=== PATIENT | female | born 1955 | race Caucasian/White ===

== ENCOUNTER 2020-05-27 15:51 | Outpatient (REF) | payer BC, SELFPAY ==
[2020-05-27 18:11] LABS: Free T4 (Free Thyroxine) 1.14 ng/dL (0.71-1.85); Thyroid Stimulating Hormone 0.38 uIU/mL (0.32-4.0)
== END 2020-05-27 15:52 | disposition home or self-care (01) ==
LOC: HO.MANLDS 15:51
PROVIDERS: PCP Internal Medicine; Visit Provider Physician Assistant
DX: E03.9 Hypothyroidism, unspecified (principal)
CPT/HCPCS: 36415; 84439; 84443

== ENCOUNTER 2021-10-12 07:44 | Outpatient (REF) | payer BC, SELFPAY ==
[2021-10-12 11:32] LABS: MANUAL DIFF FLAG NO
[2021-10-12 11:50] LABS: Basophils Absolute Auto 0.1 X10*3/uL (0.0-0.2); Basophils Percent Auto 1.4 % (0-2); Eosinophils Absolute Auto 0.4 X10*3/uL (0.0-0.4); Eosinophils Percent Auto 8.6 % (0-4); Hematocrit 42.5 % (37.0-47.0); Hemoglobin 13.7 g/dl (12.0-16.0); Imm Gran Abs Auto 0.01 X10*3/uL (0.00-0.03); Imm Gran Pct Auto 0.2 % (0.0-0.4); Lymphocytes Absolute Auto 2.1 X10*3/uL (1.2-4.9); Lymphocytes Percent Auto 41.6 % (20-40); Mean Corpuscular HGB Conc 32.2 g/dl (31.0-35.0); Mean Corpuscular Hemoglobin 30.4 pg (27.0-33.0); Mean Corpuscular Volume 94.2 fL (80.0-98.0); Mean Platelet Volume 10.5 fL (9.4-12.3); Monocytes Absolute Auto 0.5 X10*3/uL (0.1-1.2); Monocytes Percent Auto 9.2 % (2-11); Platelet Count 287 X10*3/uL (160-400); Red Blood Count 4.51 X10*6/uL (4.20-5.50); Red Cell Distribution Width 13.1 % (11.0-16.0)
[2021-10-12 12:12] LABS: Alanine Aminotransferase 15 U/L (0-31); Albumin Level 4.2 g/dL (3.5-5.0); Alkaline Phosphatase 74 U/L (39-117); Anion Gap 11 (12-20); Aspartate Amino Transferase 17 U/L (5-31); Bilirubin Total 0.5 mg/dL (0.0-1.0); Blood Urea Nitrogen 14 mg/dL (9-16); Calcium 8.9 mg/dL (8.4-10.2); Carbon Dioxide 26 mmol/L (22-29); Chloride 108 mmol/L (96-108); Cholesterol 182 mg/dL; Estimated Glomerular Filt Rate > 60; Glucose Random 104 mg/dL (60-115); HDL Cholesterol 54 mg/dL; LDL Cholesterol Calculated 113 mg/dl; Potassium 4.1 mmol/L (3.3-5.1); Sodium 141 mmol/L (135-145); Total Protein 6.8 g/dL (6.5-8.0); Triglycerides 76 mg/dL
== END 2021-10-12 07:45 | disposition home or self-care (01) ==
LOC: HO.HMGCLDS 07:44
PROVIDERS: PCP Internal Medicine; Visit Provider Physician Assistant
DX: E03.8 Other specified hypothyroidism (principal); I10 Essential (primary) hypertension
CPT/HCPCS: 36415; 80053; 80061; 84443; 85025

== ENCOUNTER 2022-11-08 07:30 | Outpatient (REF) | payer MEDICARE, SELFPAY ==
[2022-11-08 11:28] LABS: MANUAL DIFF FLAG NO
[2022-11-08 11:32] LABS: Basophils Absolute Auto 0.1 X10*3/uL (0.0-0.2); Basophils Percent Auto 1.2 % (0-2); Eosinophils Absolute Auto 0.3 X10*3/uL (0.0-0.4); Eosinophils Percent Auto 6.2 % (0-4); Hematocrit 42.6 % (37.0-47.0); Hemoglobin 13.9 g/dl (12.0-16.0); Lymphocytes Absolute Auto 2.3 X10*3/uL (1.2-4.9); Lymphocytes Percent Auto 47.8 % (20-40); Mean Corpuscular HGB Conc 32.6 g/dl (31.0-35.0); Mean Corpuscular Hemoglobin 30.7 pg (27.0-33.0); Mean Platelet Volume 10.3 fL (9.4-12.3); Monocytes Absolute Auto 0.4 X10*3/uL (0.1-1.2); Monocytes Percent Auto 8.2 % (2-11); Neutrophils Absolute Auto 1.8 x10*3/uL (2.0-8.3); Neutrophils Percent Auto 36.6 % (45-73); Platelet Count 279 X10*3/uL (160-400); Red Blood Count 4.53 X10*6/uL (4.20-5.50); Red Cell Distribution Width 12.7 % (11.0-16.0); White Blood Count 4.9 X10*3/uL (4.8-10.8)
[2022-11-08 12:18] LABS: Alanine Aminotransferase 16 U/L (0-31); Albumin Level 3.9 g/dL (3.5-5.0); Alkaline Phosphatase 70 U/L (39-117); Anion Gap 15 (12-20); Aspartate Amino Transferase 19 U/L (5-31); Bilirubin Total 0.5 mg/dL (0.0-1.0); Blood Urea Nitrogen 18 mg/dL (9-16); Calcium 9.4 mg/dL (8.4-10.2); Carbon Dioxide 22 mmol/L (22-29); Chloride 109 mmol/L (96-108); Cholesterol 198 mg/dL; Estimated Glomerular Filt Rate > 60; Glucose Random 100 mg/dL (60-115); HDL Cholesterol 51 mg/dL; LDL Cholesterol Calculated 131 mg/dl; Potassium 3.9 mmol/L (3.3-5.1); Sodium 142 mmol/L (135-145); Triglycerides 84 mg/dL
[2022-11-08 12:39] LABS: Free T4 (Free Thyroxine) 0.87 ng/dL (0.71-1.85); Thyroid Stimulating Hormone 1.33 uIU/mL (0.32-4.0)
== END 2022-11-08 07:31 | disposition home or self-care (01) ==
LOC: HO.HMGCLDS 07:30
PROVIDERS: PCP Internal Medicine; Visit Provider Physician Assistant
DX: I10 Essential (primary) hypertension (principal); E03.8 Other specified hypothyroidism
CPT/HCPCS: 36415; 80053; 80061; 84439; 84443; 85025

== ENCOUNTER 2022-11-25 09:54 | Outpatient (REF) | payer MEDICARE, SELFPAY ==
[2022-11-25 14:08] LABS: Cortisol Random 12.7 ug/dL
[2022-11-25 14:14] LABS: Erythrocyte Sedimentation Rate 3 MM/HR (0-20)
[2022-11-28 10:59] LABS: Follicle Stimulating Hormone 137.7 mIU/mL; Lutenizing Hormone 42.3 mIU/mL
[2022-11-28 17:38] LABS: Thyroglobulin 10.1 ng/mL; Thyroid Peroxidase Antibodies <1 IU/mL (<9)
[2022-12-01 13:28] LABS: Testosterone, Free 2.9 pg/mL (0.1-6.4); Testosterone, Total 19 ng/dL (2-45)
[2022-12-01 15:14] LABS: Progesterone <0.1 ng/mL
[2022-12-02 17:37] LABS: Estrogen 61 pg/mL
== END 2022-11-25 09:55 | disposition home or self-care (01) ==
LOC: HO.MANLDS 09:54
PROVIDERS: Visit Provider Physician Assistant
DX: R61 Generalized hyperhidrosis (principal)
CPT/HCPCS: 36415; 82533; 82672; 83001; 83002; 84144; 84402; 84403; 84432; 85652; 86140; 86376

== ENCOUNTER 2023-02-03 13:22 | Outpatient (REF) | payer MEDICARE, SELFPAY ==
--- NOTE | ~2023-02-03 | MM_ITS ---
EXAMINATION: MM SCREENING DIGITAL BREAST TOMOSYNTHESIS, BILATERAL CLINICAL INFORMATION: Screening. Asymptomatic. COMPARISON: Mammography: This study is compared with prior exams dating back to 2007. TECHNIQUE: Digital breast tomosynthesis is performed in both the craniocaudal and mediolateral oblique views along with computer-aided detection (CAD). Synthesized 2D images are generated from the tomosynthesis. FINDINGS: There are scattered areas of fibroglandular density (ACR BI-RADS breast composition Category b). There is a focal asymmetry of the lower inner quadrant of the left breast at an anterior depth. Additional mammographic imaging of this region is advised. Targeted sonography is at the discretion of the diagnostic radiologist. In the right breast, there are no significant masses, abnormal calcifications, or other abnormalities. MM/MM tomosynthesis screening BI IMPRESSION: Focal asymmetry of the left breast warrants additional mammographic imaging. Targeted sonography is at the discretion of the diagnostic radiologist. No mammographic signs of malignancy right breast. ASSESSMENT: BI-RADS BI-RADS 0 - Incomplete: Needs additional Imaging. RECOMMENDATION: 1. Additional views of the left breast 2. Targeted ultrasound if warranted after review of the additional views. 3. Radiology department staff will contact the patient for additional imaging. Additional Imaging required This examination should not preclude the clinical evaluation of a suspicious palpable abnormality. This patient's information was entered into a reminder system with a target due date for their next mammogram.
== END 2023-02-03 13:23 | disposition home or self-care (01) ==
LOC: HO.MAMMO 13:22
PROVIDERS: PCP Internal Medicine; Visit Provider Internal Medicine
DX: Z12.31 Encounter for screening mammogram for malignant neoplasm of breast (principal)
CPT/HCPCS: 77063; 77067

== ENCOUNTER → 2023-02-03 13:45 | Outpatient (BNV) | payer MEDICARE, SELFPAY | PROVIDERS: PCP Internal Medicine; Visit Provider Radiology Diagnostic Radiology | DX: Z12.31 Encounter for screening mammogram for malignant neoplasm of breast (principal) | CPT/HCPCS: 77063; 77067 ==

== ENCOUNTER 2023-03-07 08:51 | Outpatient (REF) | payer MEDICARE, SELFPAY ==
--- NOTE | ~2023-03-07 | US_ITS ---
EXAMINATION: MM DIAGNOSTIC DIGITAL BREAST TOMOSYNTHESIS, LEFT US BREAST LIMITED, LEFT MAMMOGRAPHY: CLINICAL INFORMATION: Follow-up focal asymmetry lower inner quadrant left breast, anterior depth, seen on screening exam. COMPARISON: Mammography: 02/03/2023, and dating back to 04/14/2014. TECHNIQUE: Digital breast tomosynthesis is performed in the following views: 3-D left spot compression CC and MLO views, as well as a full-field left ML 3-D view. FINDINGS: The breasts are heterogeneously dense, which may obscure small masses (ACR BI-RADS breast composition Category c). There is a lobulated mass in the anterior, lower inner quadrant of the left breast, measuring 1.9 x 0.8 cm. In retrospect, this has been present since 2014 and has undergone very little change, where it measured slightly less, approximately 1.2 x 0.6 cm. This will be interrogated by ultrasound. No additional suspicious findings in the right breast. ULTRASOUND: CLINICAL INFORMATION: Lobulated mass in the anterior, lower inner quadrant of the left breast. COMPARISON: None TECHNIQUE: Targeted sonographic evaluation was performed using a high frequency linear transducer. Attention was performed left breast inferior axis. Selected archived documentation. FINDINGS: LEFT BREAST: There is a mixture of fatty and fibroglandular tissue. No suspicious mass is seen. There is no pathologic acoustic shadowing. There is a simple cyst in the 7:00 axis, 3 cm from the nipple, measuring 1.0 x 1.0 x 0.7 cm. This correlates the mammographic focus of concern. This is benign. US/US breast LT limited mamm only IMPRESSION: There are no findings suspicious for malignancy in the right breast. Simple cyst 7:00 axis. This is benign. Recommend the patient return to routine bilateral screening. OVERALL ASSESSMENT: Mammography: BI-RADS 2 - Benign Findings Ultrasound: BI-RADS 2 - Benign Findings RECOMMENDATION: 1 year F/U Results were provided to the patient at time of visit by the technologist. This patient's information was entered into a reminder system with a target due date for their next mammogram.
== END 2023-03-07 08:52 | disposition home or self-care (01) ==
LOC: HO.MAMMO 08:51
PROVIDERS: PCP Internal Medicine; Visit Provider Internal Medicine
DX: R92.2 Inconclusive mammogram (principal)
CPT/HCPCS: 76642; 77061; 77065

== ENCOUNTER → 2023-03-07 09:00 | Outpatient (BNV) | payer MEDICARE, SELFPAY | PROVIDERS: PCP Internal Medicine; Visit Provider Radiology Diagnostic Radiology | DX: N60.02 Solitary cyst of left breast (principal) | CPT/HCPCS: 76642; 77061; 77065; G0279 ==

== ENCOUNTER 2024-02-09 13:08 | Outpatient (REF) | payer MEDICARE, SELFPAY ==
--- NOTE | ~2024-02-09 | MM_ITS ---
EXAMINATION: MM SCREENING DIGITAL BREAST TOMOSYNTHESIS, BILATERAL CLINICAL INFORMATION: Screening. Asymptomatic. COMPARISON: Mammography: Comparison is made with available priors TECHNIQUE: Digital breast mammography with tomosynthesis is performed in both the craniocaudal and mediolateral oblique views along with computer-aided detection (CAD). FINDINGS: The breasts are heterogeneously dense, which may obscure small masses (ACR BI-RADS breast composition Category c). There are no significant masses, abnormal calcifications, or other abnormalities. MM/MM tomosynthesis screening BI IMPRESSION: No mammographic evidence of malignancy. ASSESSMENT: BI-RADS BI-RADS 1 - Negative RECOMMENDATION: Routine annual mammography screening. 1 year F/U This examination should not preclude the clinical evaluation of a suspicious palpable abnormality. This patient's information was entered into a reminder system with a target due date for their next mammogram. Electronically signed by: Misti Covington DO 02/19/2024 07:40 PM [facility]
== END 2024-02-09 13:09 | disposition home or self-care (01) ==
LOC: HO.MAMMO 13:08
PROVIDERS: PCP Internal Medicine; Referring Provider Internal Medicine; Visit Provider Internal Medicine
DX: Z12.31 Encounter for screening mammogram for malignant neoplasm of breast (principal)
CPT/HCPCS: 77063; 77067

== ENCOUNTER → 2024-02-09 13:30 | Outpatient (BNV) | payer MEDICARE, SELFPAY | PROVIDERS: PCP Internal Medicine; Visit Provider Internal Medicine | DX: Z12.31 Encounter for screening mammogram for malignant neoplasm of breast (principal) | CPT/HCPCS: 77063; 77067 ==

== ENCOUNTER 2024-05-14 07:35 | Outpatient (REF) | payer MEDICARE, SELFPAY ==
--- OUTSIDE RECORDS SUMMARY | 2024-05-14 07:43 | XMS_ITS | Data Portability ---
Author Organization [facility], Home Service Address [address] [place] [address] Assessment Encounter Date Assessment Date Assessment LastModified by Organization Details LastModified Time 05/25/2022 05/25/2022 The patient denies recent falls or recurrent falls. Denies instability, weakness, abnormal gait, or difficulties with movement. The patient wears correct, supportive shoes and is not otherwise severely visually impaired. The patient is full weight bearing and if using the assistance of a cane or walker feels supported and stable with the use of such devices. All medical conditions have been taken into account that may pose a risk for the patient for falls. Home kaylyn, carpets and/or rugs do not pose a challenge for the patient. The patient has been educated about the use of vitamin D supplementation for bone health and prevention of hypotensive episodes that may increase risk for fall. All question and concerns were answered to the patient's satisfaction. [email or web address] Not available 05/25/2022 09:08:08 11/25/2022 11/25/2022 The patient denies recent falls or recurrent falls. Denies instability, weakness, abnormal gait, or difficulties with movement. The patient wears correct, supportive shoes and is not otherwise severely visually impaired. The patient is full weight bearing and if using the assistance of a cane or walker feels supported and stable with the use of such devices. All medical conditions have been taken into account that may pose a risk for the patient for falls. Home kaylyn, carpets and/or rugs do not pose a challenge for the patient. The patient has been educated about the use of vitamin D supplementation for bone health and prevention of hypotensive episodes that may increase risk for fall. All question and concerns were answered to the patient's satisfaction. [email or web address] Not available 11/25/2022 09:50:02 Plan of Treatment Reminders Order Date Submit Date Provider Last Modified By Organization Details Last Modified Time Details Appointments FOLLOW UP 15 2024 09:00A SANNA LOPEZ Not available Not available Not available Lab lipid panel, blood 2022 023 [facility], [address] [place] [address], [id number], 05/25/2022 09:20:31 TSH + free T4, serum 2022 023 [facility], [address] [place] [address], [address], 05/25/2022 09:20:31 CMP, serum or plasma 2022 023 [facility], [address] [place] [address], [address], 11/09/2022 12:06:31 CBC w/ auto diff 2022 023 [facility], [address] [place] [address], [place], [address], 05/25/2022 09:20:31 lh + FSH, serum 2022 023 [facility], [address] [place] [address], [place], [address], 11/28/2022 11:38:43 C-reactiv e protein, quantitat otis, serum or plasma 2022 023 [facility], [address] [place] [address], [place], [address], 11/28/2022 11:38:43 erythrocy te sedimenta tion rate by westergre n method 2022 023 [facility], [address] [place] [address], [id number], 11/28/2022 11:38:44 testoster one, free + total, serum 2022 023 [facility], [address] [place] [address], [address], 12/02/2022 12:22:09 progester one, serum 2022 023 [facility], [address] [place] [address], [address], 12/02/2022 12:22:09 estrogen, total, serum 2022 023 [facility], [address] [place] [address], [address], 12/05/2022 11:46:25 thyroglob ulin, quantitat otis, serum 2022 023 [facility], [address] [place] [address], [address], 11/29/2022 12:45:55 thyroid peroxidas e (tpo) Ab, serum 2022 023 [facility], [address] [place] [address], [address], 11/29/2022 12:45:55 cortisol, serum or plasma 2022 023 [facility], [address] [place] [address], [address], 11/25/2022 09:48:09 CMP, serum or plasma 2023 024 [facility], [address] [place] [address], [address], 11/22/2023 09:46:03 CBC w/ auto diff 2023 024 [facility], [address] [place] [address], [address], 11/22/2023 09:46:03 TSH + free T4, serum 2023 [facility], [address] [facility], [place], [address], 11/22/2023 09:46:03 Referral None recorded. Procedures None recorded. Surgeries None recorded. Imaging None recorded. Medication Orders losartan 50 mg tablet 2023 [facility], [address] [place] [address], [address], 05/26/2023 09:40:42 levothyro xine 75 mcg tablet 2023 [facility], [address] [place] [address], [address], 05/26/2023 09:40:42 Patient TargetsNo targets recorded. Patient InstructionsNo instructions recorded. Reason for Referral None Reported. Results Created Date Observation Date Name Description Value Unit Range Abnormal Flag Note LastModifiedBy Organization Detail LastModifiedTime 02/23/20 23 02/03/2023 MAMMO , scree irineo, digit al, bilat eral No observ ation record ed. [address] [place], [address], 05/26/2023 09:43:08 03/07/20 23 03/07/2023 MAMMO , scree irineo, digit al, bilat eral No observ ation record ed. [address] [place], [address], 05/26/2023 09:43:08 03/07/20 23 03/07/2023 MAMMO , scree irineo, digit al, bilat eral No observ ation record ed. [address] [place], [address], 05/26/2023 09:43:08 02/19/20 24 2024 MAMMO , scree irineo, digit al, bilat eral No observ ation record ed. [facility] [address] [place], [address], 02/20/2024 08:51:41 Result Notes None recorded. Problems Name Problem SNOMED Code Status Onset Date Resolution Date Notes Provider Name and Address Organization Details Recorded Time History of tear of retina 099390415 Active 2018 left Vicky Bowden NP, S [address] [place] [address], [phone], [facility] [place], [facility] 9 15:22:49 Lingular pneumonia 678869154 Active 2022 SANNA MORIN [address] [place] [address], [phone], [facility] 3 09:43:55 Hot sweats 814491810 Active 2022 SANNA MORIN [address] [place] [address], [address], [facility] [place] 3 09:44:02 Menopausal syndrome 934581801 Active 2022 SANNA MORIN [address] [place] [address], [address], [facility] 3 12:06:03 Menopause Active 2022 SANNA MORIN [address] [place] [address], [address], [facility] [place] 3 14:39:53 Menopausal flushing 905068768 Active 2022 SANNA MORIN [address] [place] [address], [address], [facility] [place] 3 14:40:20 Pneumonia 189979960 Active 2023 SANNA MORIN [address] [place] [address], [address], [facility] [place] 4 09:40:55 Essential hypertensi on 56566476 Active 2017 Tootie greenfield [facility] 8 16:53:01 Hypothyroi dism 62248241 Active 2017 Tootie greenfield [facility] 8 16:54:42 Diverticul itis 452088869 Active 2017 Tootie greenfield [facility] 8 16:54:52 Problem Notes None recorded. Procedures Surgical History Date Name Laterality Status Provider Name and Address Organization Details Recorded Time repair of retina for retinal detachment completed Vicky Bowden NP, [address] [place], [address], [facility] [place] 05/23/2018 15:23:14 Imaging Results Imaging Date Name Status LastModified by Organiz ation Details LastModified Time 02/03/2023 MAMMO, screening, digital, bilateral [facility] [address] [place], [address], 05/26/2023 09:43:08 03/07/2023 MAMMO, screening, digital, bilateral completed [address] [place], [address], 05/26/2023 09:43:08 03/07/2023 MAMMO, screening, digital, bilateral [facility] [address] [place], [address], 05/26/2023 09:43:08 2024 MAMMO, screening, digital, bilateral completed [email or web address] [address] [place], [address], 02/20/2024 08:51:41 Procedure Notes None recorded. Medical Equipment None Reported. Allergies Allergen ID Allergen Name Allergen Category Reaction Reaction Severity Criticality Documentation Date Start Date Code Code System Note Provider Name and Address Organization Details Recorded Time 1404 Substance with sulfonami de structure and antibacte rial mechanism of action (substanc e) medicatio n Not available Not available Not available 08/25/2017 18783 8007 SNOMED [facility] 8 16:51:41 1405 Percodan medicatio n Not available Not available Not available 08/25/2017 82129 [facility]Norm [facility] 8 16:52:00 Medications Name Sig Start Date Stop Date Status Note LastModified by Organization Details LastModified Time losartan 50 mg tablet TAKE 1 TABLET DAILY 2024 active Not Available Not Available Not Avai lable methocarbam ol 500 mg tablet 04/23 completed Not Available Not Available Not Available prednisone 10 mg tablet 10/19 completed Not Available Not Available Not Available enalapril maleate 5 mg tablet TAKE 1 TABLET DAILY 11/25 completed Not Available Not Available Not Available azithromyci n 250 mg tablet TAKE 2 TABLETS (500 MG) BY ORAL ROUTE ONCE DAILY FOR 1 DAY THEN 1 TABLET (250 MG) BY ORAL ROUTE ONCE DAILY FOR 4 DAYS 05/23 completed Not Available Not Available Not Available prednisone 20 mg tablet 05/28 completed Not Available Not Available Not Available medroxyprog esterone 5 mg tablet Take 1 tablet every day by oral route for 21 days. 05/26 completed Not Available Not Available Not Available methylpredn isolone 4 mg tablet 10/19 completed Not Available Not Available Not Available levothyroxi ne 75 mcg tablet TAKE 1 TABLET DAILY 2024 active Not Available Not Available Not Avai lable estradiol 1 mg tablet Take 1 tablet every day by oral route for 21 days. 05/26 completed Not Available Not Available Not Available ciprofloxac in 0.3 % eye drops INSTILL 1 DROP INTO AFFECTED EYE(S) BY OPHTHALMI C ROUTE EVERY 2 HOURSWHIL E AWAKE FOR 2 DAYS THEN 1 DROP EVERY 4 HRS WHILE AWAKE FOR 5 DAYS 10/19 completed Not Available Not Available Not Available doxycycline monohydrate 100 mg capsule Take 1 capsule twice a day by oral route. 05/23 completed Not Available Not Available Not Available losartan 25 mg tablet TAKE 1 TABLET DAILY 12/01 completed Not Available Not Available Not Available progesteron e micronized 200 mg capsule TAKE 1 CAPSULE EVERY DAY BY ORAL ROUTE FOR 12 DAYS. 05/26 completed Not Available Not Available Not Available gabapentin 100 mg capsule 10/19 completed Not Available Not Available Not Available estradiol 0.5 mg tablet Take 1 tablet every day by oral route for 21 days. 05/26 completed Not Available Not Available Not Available naproxen 500 mg tablet 05/23 completed Not Available Not Available Not Available Pneumovax-2 3 25 mcg/0.5 mL injection syringe 12/01 completed Not Available Not Available Not Available ProAir HFA 90 mcg/actuati on aerosol inhaler Inhale 2 puffs every 6 hours by inhalatio n route. 08/22 completed Not Available Not Available Not Available Virtussin AC 10 mg-100 mg/5 mL oral liquid Take 10 mL every 4 hours by oral route. 05/23 completed Not Available Not Available Not Available Fluarix Quad 9005-2016 (PF) 60 mcg (15 mcg x 4)/0.5 mL IM syringe 08/28 completed Not Available Not Available Not Available Flucelvax Quad (PF) 60 mcg (15 mcg x 4)/0.5 mL IM syringe 04/23 completed Not Available Not Available Not Available Fluarix Quad (PF) 60 mcg (15 mcg x 4)/0.5 mL IM syringe 07/08 completed Not Available Not Available Not Available Vitals Date Recorded Body height Body mass index (BMI) Body weight Oxygen saturation Oxygen saturation in Arterial blood by Pulse oximetry Heart rate Systolic blood pressure Diastolic blood pressure Provider Name and Address Organization Details Last Updated DateTime 2 160.66 cm 26.7 kg/m2 41456.4 g 96 % 96 % 100 /min 130 mm[Hg] 70 mm[Hg] [facility] 2 09:17:41 Date Recorded Body height Body mass index (BMI) Body weight Oxygen saturation Oxygen saturation in Arterial blood by Pulse oximetry Heart rate Systolic blood pressure Diastolic blood pressure Provider Name and Address Organization Details Last Updated DateTime 3 160.66 cm 26.9 kg/m2 27154.3 5 g 96 % 96 % 98 /min 124 mm[Hg] 78 mm[Hg] [facility] 3 09:03:04 Date Recorded Body height Body mass index (BMI) Body weight Heart rate Oxygen saturation Oxygen saturation in Arterial blood by Pulse oximetry Systolic blood pressure Diastolic blood pressure Provider Name and Address Organization Details Last Updated DateTime 3 160.66 cm 26.9 kg/m2 41317.7 1 g 80 /min 94 % 94 % 124 mm[Hg] 72 mm[Hg] SANNA MORIN [address] [place], [address] [place] [address] [facility] 3 09:38:19 Date Recorded Body height Body mass index (BMI) Body weight Oxygen saturation Oxygen saturation in Arterial blood by Pulse oximetry Heart rate Systolic blood pressure Diastolic blood pressure Provider Name and Address Organization Details Last Updated DateTime 4 160.66 cm 26.9 kg/m2 46107.6 3 g 97 % 97 % 107 /min 132 mm[Hg] 74 mm[Hg] Maria R Garcia [facility] 4 09:27:07 Date Recorded Body height Body mass index (BMI) Body weight Heart rate Oxygen saturation Oxygen saturation in Arterial blood by Pulse oximetry Systolic blood pressure Diastolic blood pressure Provider Name and Address Organization Details Last Updated DateTime 4 160.66 cm 27.3 kg/m2 67492.9 g 96 /min 96 % 96 % 130 mm[Hg] 82 mm[Hg] Renee Juan Alberto [facility] 4 09:29:29 Social History Question Answer Notes LastModified by Organizat ion Details LastModified Time Tobacco Smoking Status [facility] 08/28/2017 14:48:11 What Was The Date Of Your Most Recent Tobacco Screening? 11/22/2023 [email or web address] Information not available 11/22/2023 Do You Or Have You Ever Used Any Other Forms Of Tobacco Or Nicotine? No [email or web address] Information not available 05/26/2023 Sex: Unknown Functional Status None recorded. Mental Status None recorded. Family History Nothing Reported. Medical History No medical history recorded. Gynecological HistoryNo gynecological history recorded. Obstetrics History GPAL:G 0 P 0 0 0 0 Immunizations Vaccine Type Date Status Note Provider Nam e and Address Organization Details Recorded Time COVID-19, mRNA, LNP-S, PF, 30 mcg/0.3 mL dose 07/24/19 21 completed Ananya greenfield [facility] 12/01/2020 09:03:14 COVID-19, mRNA, LNP-S, PF, 30 mcg/0.3 mL dose 08/14/19 21 completed Ananya greenfield [facility] 12/01/2020 09:03:19 pneumococcal polysaccharide PPV23 02/11/20 19 completed Ananya greenfield [facility] 12/01/2020 09:17:06 Influenza, split virus, quadrivalent, preservative 01/15/20 18 completed Suman Escalera DO [address] [place] [address], [address], [facility] 01/15/2018 14:23:11 COVID-19, mRNA, LNP-S, PF, 30 mcg/0.3 mL dose 02/27/20 21 completed Emma greenfield [facility] 05/25/2022 07:58:16 COVID-19, mRNA, LNP-S, PF, 30 mcg/0.3 mL dose 01/15/20 22 completed Emma greenfield [facility] 05/25/2022 07:58:24 influenza, unspecified formulation 02/07/20 22 [facility] 07:58:41 Influenza, split virus, quadrivalent, preservative 01/27/20 19 completed VIOLETTE Christina [address] [place] [address], [address], [facility] 05/28/2019 09:12:33 Past Encounters Encounter ID Performer Location Encounter Start Date Encounter Closed Date Diagnosis/Indication Diagnosis SNOMED-CT Code Diagnosis ICD10 Code Diagnosis Note [id number] Vicky Bowden NP, S [address],[place] [address] 08/28/2017 14:40:00 08/28/2017 16:33:57 Hypothyroidism 31273319 E03.9 Essential hypertension 16498582 I10 Diverticul osis of colon without diverticulitis 638842780 K57.30 up [place] with [place]oscop y [id number] Vicky Bowden NP, [facility] [address] [facility],[place] [address] 04/23/2018 11:00:28 04/23/2018 11:28:57 Cough 17196941 R05 Pneumonia 104909775 J18. 9 Hypothyroidism 17200251 E03.9 stable Essential hypertension 63674196 I10 well controlled [id number] Vicky Bowden NP, [facility] [address] [facility], [place] [address] 05/07/2018 13:48:33 05/07/2018 15:21:53 Lingular pneumonia 663797102 J18.1 rest and stay hydrated [id number] Vicky Bowden NP, [facility] [address], [facility] [place] [address] 05/23/2018 15:10:49 05/23/2018 16:33:27 Adult health examination 596893841 Z00.00 Screening procedure 2012 5006 Z13.9 Fine respi ratory crackles 90899311 R09.89 Hypothyroidism 96524394 E03.9 stable Essential hypertension 40851471 I10 well controlled Sciatica 83423952 M54.32 continue stretches, avoid high kicks in kickboxing class [id number] Vicky Bowden NP, [facility] [address] [facility], [facility] [place] [address] 06/13/2018 13:16:24 06/13/2018 15:09:43 Pneumonia 499138448 J18.9 test of cure Chronic cough 20672637 R 05 Tachycardia 2841611 R00. 0 improved , but persistent Vicky Bowden NP, [facility] [address], [place] [address] 08/22/2018 10:16:51 08/22/2018 12:09:58 Acute conjunctivitis 48700546 H10.32 Hypothyroidism 72125906 E03.9 stable Essential hypertension 70908952 I10 well controlled Sciatica 56673958 M54.32 pt defers physical therapy +/or MRI [id number] [facility] [address] [facility] [address],[place] [address] 10/19/2018 09:31:16 10/19/2018 12:23:32 Acute sciatica 243188752 M54.32 improving had xr at and it was normal would like to just monitor improvemen t Essential hypertension 29818037 I10 stable Hypothyroidism 86975397 E03.9 stable Screening procedure 2012 5006 Z13.9 Vitamin D deficiency 347 51748 E55.9 [id number] [facility] [address] [facility] [address],[place] [address] 05/28/2019 08:51:55 05/28/2019 09:59:29 Acute sciatica 922098970 M54.32 improving had xr at and it was normal would like to just monitor improvemen t Essential hypertension 71573822 I10 stable Hypothyroidism 77498143 E03.9 stable Screening for malignant neoplasm of breast 664633919 Z12.31 Body mass index 25-29 - overweight 103162337 Z68.27 [id number] SANNA MORIN [facility] [address] [facility],[place] [address] 11/26/2019 08:50:51 11/26/2019 09:55:10 Adult health examination 678523432 Z00.00 no concerns today Essential hypertension 74831849 I10 will switch medication because she has developed a dry cough will have her fu to see how she is doing on her medication [id number] SANNA MORIN [facility] [address] [facility] [address],[place] [address] 05/27/2020 15:25:26 05/27/2020 15:50:45 Hypothyroidism 05275238 E03.9 follow up with TSH check to see if there needs to be adjustment Essential hypertension 65050884 I10 will increase dose to 50 mg, will have her take two of the 25 mg and fu with increased script when she is out Diverticulitis 514256749 K57.92 recent flare that resolved on its own, doing well otherwise [id number] SANNA MORIN [facility] [address],[place] [address] 12/01/2020 08:55:01 12/01/2020 09:18:53 Hypothyroidism 65216091 E03.9 recent check was normal Essential hypertension 42941778 I10 BP stableexce llent control with losartan Lingular pneumonia 33544 6003 J18.1 resolved [id number] SANNA MORIN [facility] [address],[place] [address] 05/25/2021 09:03:16 05/25/2021 09:26:25 Hypothyroidism 49970706 E03.8 recent check was normal Essential hypertension 21716368 I10 BP stableexce llent control with losartan Lingular pneumonia 74060 6003 J18.1 resolved [id number] SANNA MORIN [facility] [address],[place] [address] 11/24/2021 09:09:01 11/24/2021 10:35:09 Hypothyroidism 59249917 E03.8 stable with BW Essential hypertension 28795200 I10 BP stableexce llent control with losartan [id number] SANNA MORIN [facility] [address],[place] [address] 05/25/2022 08:57:26 05/25/2022 09:27:35 Essential hypertension 30485960 I10 BP stableexce llent control with losartan Hypothyroidism 96880978 E03.8 stable with BW [id number] SANNA MORIN [facility] [address],[place] [address] 11/25/2022 09:34:40 11/25/2022 11:13:52 Essential hypertension 68474620 I10 BP stableexce llent control with losartan Hypothyroidism 78111865 E03.8 stable with BW Lingular pneumonia 33720 6003 J18.1 resolved Hot sweats 313339031 R61 will set up with additional lab work for new onset lab work [id number] SANNA MORIN [facility] [address],[place] [address] 05/26/2023 09:21:38 05/26/2023 14:15:59 Menopausal flushing 804515579 N95.1 stable will monitor Hypothyroidism 86867150 E03.8 stable with BW Essential hypertension 90647570 I10 BP stableexce llent control with losartan Pneumonia 085752031 J18. 1 resolved [id number] SAN[facility] MOR[facility] [address] [facility],[place] [address] 11/22/2023 09:22:42 11/22/2023 10:50:35 Depression screening 368297946 Z13.31 SCREENING NEGATIVE Active or passive immunization 524354886 Z23 up for shingles and pnagets flu shot every year Essential hypertension 30897228 I10 BP stableexce llent control with losartan Hypothyroidism 68260580 E03.8 stable with BW Health Concerns Section Related Observation LastModified by Organization Detai ls LastModified Time None Recorded Concern Status LastModified by Organization Details LastModified Time None Recorded Advance Directives Directive None Recorded Payers Encounter Date Sequence Insurance Name Policy Number Policy Arellano Covered Member ID Arellano Member ID Guarantor Name 11/24/2021 1 [facility] [place] [id number] Venita A Ankita [id number] Venita Ankita 05/25/2022 1 [facility] [place] [id number] Venita A Ankita [id number] Venita Ankita 05/25/2022 1 [place] [employer] Venita A Ankita [id number] Venita Ankita 11/25/2022 1 [place] [employer] Venita A Ankita [id number] Venita Ankita 05/26/2023 1 [place] [employer] Venita A Ankita [id number] Venita Ankita 11/22/2023 1 [place] [employer] Venita A Ankita [id number] 4 Venita Ankita Notes Date Note Type Note Provider Name a nd Address Organization Details Recorded Time 2 text/html 6 mos f/u HTN: today in the office the patient BP is 130/70 L arm sittingthe patient is doing well on the BP medication with no side effects and no adjustment of their medications needed today at the appointmentwell-cont rolled on medicationdenies chest pain, sob, ankle swelling, orthopnea, palpitations hypothyroidism: BW was excellent recent will f/u with patient in another 6 mos [address] [place], [id number], [facility], [place], operated by [facility] 11/24/2021 10:01:57 3 text/html f/u BP the patient reports that at night she has bilateral leg at nightthe patient reports that it feels like cramping HTN: today in the office the patient BP is 124/78 L arm sitting the patient is doing well on the BP medication with no side effects and no adjustment of their medications needed today at the appointment well-controlled on medication denies chest pain, sob, ankle swelling, orthopnea, palpitations hypothyroidism: the patient needs BW [address] [place], [id number], [facility], [place], operated by [facility] 05/25/2022 09:19:09 3 text/html 6 mos fu HTN: today in the office the patient BP is 124/72 L arm sittingthe patient is doing well on the BP medication with no side effects and no adjustment of their medications needed today at the appointmentwell-cont rolled on medicationdenies chest pain, sob, ankle swelling, orthopnea, palpitations losartan is stable hypothyroidism: blood work is stable the patient has night sweats; the patient is having hot flashesthe patient temp is normalno other symptoms with the hot flashesin menopausedoes have some sweating when this happens the patient does report interrupted sleep [address] [place], [id number], [facility], [place], operated by [facility] 11/25/2022 09:50:53 4 text/html 6 mos f/u the patient has been doing wellno changes in her healthno new allergies the patient has a f/u MM in a year, both sisters diagnosed with breast cancer this past yearthe patient is doing well otherwise the patient is walking 2 miles everyday the patient denies vision changes, headaches, chest pain, sobthe patient has routine eye exams, they are goodthe patient reports she was recently at the dentist, has to have another crown put in BP is a little elevated but not badthe patient reports she is feeling sleeping poorly, no changesable to go back to sleepeating is good, no change appetite BP recheck R arm sitting after 15 minuteswas 126/82 R arm [address] [place], [id number], [facility], [place], operated by [facility] 05/26/2023 09:44:16 4 text/html 6 mos f/u HTN: today in the office the patient BP is 130/82 L arm sittingthe patient is doing well on the BP medication with no side effects and no adjustment of their medications needed today at the appointmentwell-cont rolled on medicationdenies chest pain, sob, ankle swelling, orthopnea, palpitations depression screening: The patient denies little pleasure in activities they find enjoyable, feeling depressed, difficulties sleeping, feeling tired or having little energy, change in appetite, feeling guilty, overwhelmed or unmotivated. The patient denies suicidal ideation, thoughts of hurting themselves or others. Their mood is appropriate, they show good judgement and clear understanding of the conversation. They are orientated to time, place and person. They are not expressing any concerning thoughts or actions that would need further investigation and treatment for mental health. fall risk assessment: The patient denies recent falls or recurrent falls. Denies instability, weakness, abnormal gait, or difficulties with movement. The patient wears correct, supportive shoes and is not otherwise severely visually impaired. The patient is full weight bearing and if using the assistance of a cane or walker feels supported and stable with the use of such devices. All medical conditions have been taken into account that may pose a risk for the patient for falls. Home kaylyn, carpets and/or rugs do not pose a challenge for the patient. The patient has been educated about the use of vitamin D supplementation for bone health and prevention of hypotensive episodes that may increase risk for fall. All question and concerns were answered to the patient's satisfaction. [address] [place], [id number], [facility], [place], operated by [facility] 11/22/2023 09:50:27 OBGyn Episode No OBEpisode recorded.
[2024-05-14 10:23] LABS: MANUAL DIFF FLAG NO
[2024-05-14 10:55] LABS: Basophils Absolute Auto 0.1 X10*3/uL (0.0-0.2); Basophils Percent Auto 1.4 % (0-2); Eosinophils Absolute Auto 0.3 X10*3/uL (0.0-0.4); Eosinophils Percent Auto 6.2 % (0-4); Hematocrit 41.6 % (37.0-47.0); Hemoglobin 13.9 g/dl (12.0-16.0); Lymphocytes Absolute Auto 2.1 X10*3/uL (1.2-4.9); Lymphocytes Percent Auto 42.3 % (20-40); Mean Corpuscular HGB Conc 33.4 g/dl (31.0-35.0); Mean Corpuscular Hemoglobin 31.1 pg (27.0-33.0); Mean Corpuscular Volume 93.1 fL (80.0-98.0); Mean Platelet Volume 10.2 fL (9.4-12.3); Monocytes Absolute Auto 0.5 X10*3/uL (0.1-1.2); Monocytes Percent Auto 10.5 % (2-11); Neutrophils Percent Auto 39.6 % (45-73); Platelet Count 282 X10*3/uL (160-400); Red Blood Count 4.47 X10*6/uL (4.20-5.50); Red Cell Distribution Width 12.7 % (11.0-16.0)
[2024-05-14 11:08] LABS: Alanine Aminotransferase 18 U/L (0-31); Albumin Level 4.1 g/dL (3.5-5.0); Alkaline Phosphatase 69 U/L (39-117); Anion Gap 15 (12-20); Aspartate Amino Transferase 22 U/L (5-31); Bilirubin Total 0.7 mg/dL (0.0-1.0); Blood Urea Nitrogen 12 mg/dL (9-16); Calcium 9.1 mg/dL (8.4-10.2); Carbon Dioxide 25 mmol/L (22-29); Chloride 107 mmol/L (96-108); Estimated Glomerular Filt Rate > 60; Glucose Random 99 mg/dL (60-115); Sodium 143 mmol/L (135-145); Total Protein 7.2 g/dL (6.5-8.0)
[2024-05-14 11:31] LABS: Free T4 (Free Thyroxine) 1.27 ng/dL (0.71-1.85); Thyroid Stimulating Hormone 0.33 uIU/mL (0.32-4.0)
== END 2024-05-14 07:36 | disposition home or self-care (01) ==
LOC: HO.HMGCLDS 07:35
PROVIDERS: PCP Internal Medicine; Visit Provider Physician Assistant
DX: I10 Essential (primary) hypertension (principal); E03.8 Other specified hypothyroidism
CPT/HCPCS: 36415; 80053; 84439; 84443; 85025

== ENCOUNTER 2025-02-10 12:52 | Outpatient (REF) | payer MEDICARE, SELFPAY | END 2025-02-10 12:53 | disposition home or self-care (01) | LOC: HO.MAMMO 12:52 | PROVIDERS: PCP Internal Medicine; Visit Provider Internal Medicine | DX: Z12.31 Encounter for screening mammogram for malignant neoplasm of breast (principal) | CPT/HCPCS: 77063; 77067 ==

== ENCOUNTER → 2025-02-10 13:15 | Outpatient (BNV) | payer MEDICARE, SELFPAY | PROVIDERS: PCP Internal Medicine; Visit Provider Internal Medicine | DX: Z12.31 Encounter for screening mammogram for malignant neoplasm of breast (principal) | CPT/HCPCS: 77063; 77067 ==